=== PATIENT | female | born 1995 | race Native Hawaiian/Other Pacific Islander ===

== ENCOUNTER 2020-11-18 08:21 | Outpatient (CLI) | payer OTHER | END 2020-11-18 19:30 | disposition home or self-care (01) | LOC: INF 08:21 | PROVIDERS: ATTEND Internal Medicine | DX: Z23 Encounter for immunization (principal) | CPT/HCPCS: 96372 ==

== ENCOUNTER 2020-12-08 09:46 | Outpatient (CLI) | payer OTHER | END 2020-12-08 20:15 | disposition home or self-care (01) | LOC: INF 09:46 | PROVIDERS: ATTEND Internal Medicine | DX: Z23 Encounter for immunization (principal) | CPT/HCPCS: 96372 ==